=== PATIENT | female | born 1980 ===

== ENCOUNTER 2022-12-27 10:00 | Inpatient (IN) | payer OTHER ==
[~2022-12-27] VITALS: Ht 157.5 cm; Wt 63.5 kg
[2022-12-28] MEDS ORDERED: IRON236 MG PO (08:50)
[2022-12-28 09:55] LABS: HEMATOCRIT 32.9 % (36.0-45.00); HEMOGLOBIN 10.5 g/dL (12.0-15.00); MEAN CELL VOLUME 74.5 fL (80.00-100.00); MEAN CORPUSCULAR HEMOGLOBIN 23.8 pg (27.00-32.0); PLATELET COUNT 327 K/uL (150-450); RED BLOOD COUNT 4.42 M/uL (4.00-6.00); RED CELL DISTRIBUTION WIDTH 19.6 % (11.5-14.5)
[2022-12-28 10:09] LABS: PARTIAL THROMBOPLASTIN TIME 27.5 SECONDS (22.0-34.0)
[2022-12-28 10:39] LABS: ALBUMIN 3.7 gm/dL (3.4-5.0); BILIRUBIN TOTAL 0.71 mg/dL (0.3-1.2); CALCIUM 9.1 mg/dL (8.5-10.1); CREATININE SERUM 0.69 mg/dL (0.55-1.02); GFR 93.3; GLOBULINA 4.6 G/DL (2.4-3.5); POTASSIUM 4.07 mEq/L (3.5-5.1); TOTAL PROTEIN 8.3 gm/dL (6.4-8.2)
[2022-12-31 07:12] LABS: HEMATOCRIT 27.9 % (36.0-45.00); MEAN CELL VOLUME 74.6 fL (80.00-100.00); MEAN CORPUSCULAR HGB CONC 32.2 g/dl (32.0-36.0); PLATELET COUNT 272 K/uL (150-450); RED BLOOD COUNT 3.74 M/uL (4.00-6.00); RED CELL DISTRIBUTION WIDTH 20.1 % (11.5-14.5)
[2022-12-31 07:44] LABS: ALBUMIN 2.9 gm/dL (3.4-5.0); BILIRUBIN TOTAL 0.81 mg/dL (0.3-1.2); CALCIUM 8.5 mg/dL (8.5-10.1); CREATININE SERUM 0.59 mg/dL (0.55-1.02); GFR 111.78; GLOBULINA 3.6 G/DL (2.4-3.5); POTASSIUM 4.23 mEq/L (3.5-5.1); TOTAL PROTEIN 6.5 gm/dL (6.4-8.2)
[2022-12-31] MEDS ORDERED: SIMETHICONE80 MG PO (14:50)
[2022-12-31] MEDS ORDERED: PERCOCET 5-3251 EACH PO (14:50)
[2022-12-31] MEDS ORDERED: IBU800 MG PO (14:50)
[2022-12-31] MEDS ORDERED: COLACE100 MG PO (14:50)
== END 2022-12-31 17:36 | disposition home or self-care (01) | DRG 743 ==
LOC: O/R 12-30 05:35 → OB/GYN 12-30 05:35 → SURG 12-30 07:30 → OB/GYN 12-30 17:01 → SURG 12-30 17:45 → OB/GYN 12-31 17:36
PROVIDERS: ADMIT Student in an Organized Health Care Education/Training Program; ATTEND Student in an Organized Health Care Education/Training Program
PROC: 0UT74ZZ Resection of Bilateral Fallopian Tubes, Percutaneous Endoscopic Approach (ICD-10-PCS; 2022-12-30)
PROC: 0TJB8ZZ Inspection of Bladder, Via Natural or Artificial Opening Endoscopic (ICD-10-PCS; 2022-12-30)
PROC: 0UT94ZZ Resection of Uterus, Percutaneous Endoscopic Approach (ICD-10-PCS; principal; 2022-12-30 17:45)
DX: D25.1 Intramural leiomyoma of uterus (principal); D25.0 Submucous leiomyoma of uterus; D25.2 Subserosal leiomyoma of uterus; Z20.822 Contact with and (suspected) exposure to COVID-19; N81.11 Cystocele, midline; D50.0 Iron deficiency anemia secondary to blood loss (chronic)